=== PATIENT | male | born 1950 | race Hispanic/Latino ===

== ENCOUNTER 2022-04-01 10:53 | Outpatient (CLI) | payer MEDICARE | END 2022-04-01 10:54 | disposition home or self-care (01) | LOC: LABHHL 10:53 | PROVIDERS: ATTEND Surgery | DX: N63.22 Unspecified lump in the left breast, upper inner quadrant (principal); M35.9 Systemic involvement of connective tissue, unspecified | CPT/HCPCS: 88305; 88341; 88342 ==

== ENCOUNTER 2022-04-23 07:37 | Day surgery (SDC) | payer MEDICARE ==
[2022-04-22 10:58] LABS: Hematocrit 44.8 % (35.5-45.6); Hemoglobin 14.7 gm/dl (11.8-15.2); Mean Corpuscular HGB Conc 33 % (32-34); Mean Corpuscular Volume 89 fl (84-94); Platelet Count 300 K/mm3 (140-440); Red Blood Count 5.05 M/mm3 (3.65-5.03); Red Cell Distribution Width 14.1 % (13.2-15.2)
[2022-04-22 11:47] LABS: BUN/Creatinine Ratio 10; Blood Urea Nitrogen 11 mg/dL (9-20); Calcium 9.2 mg/dL (8.4-10.2); Hemolysis Index 1
[~2022-04-23 07:37] MED LIST: ACETAMINOPHEN 325 MG TAB PO SCH; GABAPENTIN 300 MG CAP PO NR; LACTATED RINGERS 1,000 ML IV SCH; ceFAZolin/STERILE WATER 2 GM/20 ML SYRINGE IV NR
[2022-04-23] MEDS ORDERED: HYDROmorphone 0.5 MG/0.5 ML INJ IV PRN (09:00)
[2022-04-23] MEDS ORDERED: ONDANSETRON 4 MG/2 ML INJ IV NR (09:00)
[2022-04-23] MEDS ORDERED: HYDROcodone/ACETAMINOPHEN 5-325 MG TAB PO NR (09:00)
--- NOTE | 2022-04-23 09:01 | Anesthesia Day of Surgery ---
Anesthesia Day of Surgery - Day of Surgery Patient Examined: Yes Patient H&P Reviewed: Yes Patient is NPO: Yes
--- NOTE | 2022-04-23 09:01 | Anesthesia Consultation ---
Anesthesia Consult and Med Hx Date of service: 04/23/22 - Airway Anesthetic Teeth Evaluation: Edentulous ROM Head & Neck: Adequate Mental/Hyoid Distance: Inadequate Mallampati Class: Class III Intubation Access Assessment: Possibly Difficult - Pulmonary Exam CTA: Yes - Cardiac Exam Cardiac Exam: RRR - Pre-Operative Health Status ASA Pre-Surgery Classification: ASA4 Proposed Anesthetic Plan: General - Pulmonary Hx Smoking: No Hx Asthma: No (reactive airway s/p PNA 12/2021; occasional albuterol INH) Hx Respiratory Symptoms: Yes (stable orthopnea) Hx Pneumonia: Yes (12/2021; feels back to baseline respiratory status) - Cardiovascular System Hx Hypertension: No Hx Coronary Artery Disease: Yes (non-obstructive CAD; diastolic heart failure) Hx Heart Attack/AMI: No Hx Percutaneous Transluminal Coronary Angioplasty (PTCA): No Hx Cardia Arrhythmia: No - Central Nervous System CVA: No Hx Psychiatric Problems: Yes (anciety/depression) - Endocrine Hx Renal Disease: No Hx Liver Disease: No Hx Insulin Dependent Diabetes: No Hx Non-Insulin Dependent Diabetes: No Hx Thyroid Disease: No - Other Systems Hx Cancer: Yes (hx prostate ca) Hx Obesity: Yes - Additional Comments Anesthesia Medical History Comments: No hx anesthetic complications. Most recent outpatient cardiology office notes reviewed. No signs/symptoms acute decompensation today.
[2022-04-23] MEDS ORDERED: MIDAZOLAM 2 MG/2 ML INJ ONE (10:47)
[2022-04-23] MEDS ORDERED: propofoL 200 MG/20 ML VIAL IV ONE (11:19)
[2022-04-23] MEDS ORDERED: LIDOCAINE MPF (2%) 20 MG/1 ML VIAL 5 ML ONE (11:19)
[2022-04-23] MEDS ORDERED: ROCURONIUM 50 MG/5 ML INJ IV ONE (11:31)
[2022-04-23] MEDS ORDERED: SUCCINYLCHOLINE CHLORIDE 200 MG/10 ML INJ MDV ONE (11:31)
[2022-04-23] MEDS ORDERED: fentaNYL 100 MCG/2 ML INJ ONE (11:32)
[2022-04-23] MEDS ORDERED: BUPIVACAINE/PF (0.25%) 2.5 MG/ML 30 ML VIAL INFILTRATI ONE ×2 (11:42→12:04)
[2022-04-23] MEDS ORDERED: LIDOCAINE (2%) 20 MG/1 ML VIAL 20 ML MDV INFILTRATI ONE ×2 (11:42→12:04)
[2022-04-23] MEDS ORDERED: PHENYLEPHRINE/NS 1,000 MCG/10 ML SYRINGE (OR USE) IV ONE (11:51)
[2022-04-23] MEDS ORDERED: SODIUM CHLORIDE 0.9% IRR 1,500 ML BOTTLE IR ONE (12:05)
[2022-04-23] MEDS ORDERED: ePHEDrine SULFATE 50 MG/1 ML INJ ONE (12:20)
--- NOTE | 2022-04-23 12:32 | Short Stay Summary ---
Short Stay Documentation Date of service: 04/23/22 - History H&P: obtained from office - Allergies and Medications Current Medications: Allergies No Known Allergies Allergy (Verified 04/16/22 18:07) Home Medications Medication Instructions Recorded Confirmed Last Taken Type Bumetanide [Bumetanide 2 mg tab] 2 mg PO BID 04/16/22 04/23/22 04/19/22 09:00 History HYDROcodone/APAP 10-325 [Stuart 1 each PO BID 04/16/22 04/23/22 04/19/22 09:00 History 10/325] Potassium Chloride [K-Dur] 20 meq PO BID 04/16/22 04/23/22 04/19/22 09:00 History Active Medications Acetaminophen (Acetaminophen 325 Mg Tab) 650 mg PO PREOP DONG Stop: 04/23/22 23:59 Last Admin: 04/23/22 09:25 Dose: 650 mg Hydrocodone Bitart/Acetaminophen (Hydrocodone/Acetaminophen 5-325 Mg Tab) 2 each PO ONCE NR Stop: 04/23/22 23:59 Fentanyl (Fentanyl 100 Mcg/2 Ml Inj) 50 mcg IV Q5MIN PRN PRN Reason: Pain , Severe (7-10) Stop: 04/23/22 17:00 Gabapentin (Gabapentin 300 Mg Cap) 300 mg PO PREOP NR Stop: 04/23/22 23:59 Lactated Ringer's (Lactated Ringers) 1,000 mls @ 100 mls/hr IV DIRECT DONG Stop: 04/23/22 23:59 Last Admin: 04/23/22 09:20 Dose: 100 mls/hr Cefazolin Sodium 3 gm/ Sodium (Chloride) 100 mls @ 100 mls/30 min IV PREOP NR; Protocol Stop: 04/23/22 23:59 Ondansetron HCl (Ondansetron 4 Mg/2 Ml Inj) 4 mg IV ONCE NR Stop: 04/23/22 23:59 - Brief post op/procedure progress note Date of procedure: 04/23/22 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 Post-op diagnosis: same Procedure: Wide excision of left breast mass Anesthesia: GETA Findings: left breast mass Surgeon: CHERIE COSBY Estimated blood loss: minimal Pathology: list (left breast mass long stitch ceph margin, short stitch medical, Augmented caudal margin stitch on new cephalad margin) - Disposition Condition at discharge: Good Disposition: 01 HOME / SELF CARE / HOMELESS Short Stay Discharge Plan Weight Bearing Status: Full Weight Bearing Diet: regular Wound: change dressing (in 2-3 days) Follow up with: DELFINA HOOVER MD [Primary Care Provider] - 7 Days CHERIE COSBY MD [Staff Physician] - 7 Days Prescriptions: HYDROcodone/APAP 7.5-325 [Stuart 7.5/325] 1 each PO Q6HR PRN #10 tablet PRN Reason: Pain
[2022-04-23] MEDS: fentaNYL 100 MCG/2 ML INJ IV PRN ×3 (13:05→13:25)
--- NOTE | 2022-04-23 13:16 | Operative Report ---
Operative Report Operative Report: Date of procedure: 04/23/2022 Preop diagnosis: Left breast mass Postop diagnosis: Same Procedure: Excision of left breast mass Surgeon: Dr. Rodriguez Video Control Engineer: Dr. Armenta Anesthesia: General endotracheal anesthesia Estimated blood loss: Minimal Specimen: Procedure: The patient is taken to the OR and under general endotracheal anesthesia the timeouts are reviewed and the consent is reviewed and on the chart. The left breast is prepped with ChloraPrep and draped in a sterile fashion. Ultrasound had been used to target the lesion its approximate size and location in the preop area. Elliptical incision is made directly above the target lesion. It is carried sharply down through subcutaneous tissue. The mass and a appropriate margin are excised completely. The specimen is labeled with a short stitch on the cephalad margin, and a long stitch on the medial margin. An ellipse of skin pruitt the superficial margin. Examination of the operative site and the specimen show the lesion to be close to the caudal margin. A augmented caudal margin is obtained. A short stitch is placed on the new caudal margin. The wound is irrigated with saline. Electrocautery was used for hemostasis. The wound is closed in layers. Hemoclips were used to khadar the site of the tumor. Skin is closed with Dermabond and 4-0 Monocryl. Patient tolerated procedure well.
--- NOTE | 2022-04-23 14:25 | Post Anesthesia Evaluation ---
- Post Anesthesia Evaluation Patient Participated: Yes Airway Patent: Yes Stable Respiratory Function: Yes Nausea/Vomiting: No Temp > 96.8F: Yes Pain Manageable: Yes Adequeate Hydration: Yes Anesthesia Complications: No
[2022-04-23 14:30] VITALS: BP 143/72
== END 2022-04-23 14:15 | disposition home or self-care (01) ==
LOC: OR 07:37
PROVIDERS: ATTEND Surgery
DX: N63.20 Unspecified lump in the left breast, unspecified quadrant (principal); I50.9 Heart failure, unspecified; I25.10 Atherosclerotic heart disease of native coronary artery without angina pectoris; E66.9 Obesity, unspecified; M19.90 Unspecified osteoarthritis, unspecified site; F41.9 Anxiety disorder, unspecified; F32.9 Major depressive disorder, single episode, unspecified; Z98.42 Cataract extraction status, left eye; Z85.46 Personal history of malignant neoplasm of prostate; Z98.41 Cataract extraction status, right eye; Z79.899 Other long term (current) drug therapy; Z98.890 Other specified postprocedural states; Z20.822 Contact with and (suspected) exposure to COVID-19; Z68.41 Body mass index [BMI] 40.0-44.9, adult; Z87.01 Personal history of pneumonia (recurrent)
CPT/HCPCS: 19120; 36415; 80048; 85027; 88307; J0330; J0690; J2250; J2370; J2704; J3010; J3490; J7120; U0003